=== PATIENT | male | born 1960 | race African-American/Black ===

== ENCOUNTER 2019-09-23 21:38 | Emergency (ER) | payer MEDICAID, OTHER ==
[~2019-09-23] VITALS: Ht 177.8 cm; Wt 73.0 kg
[2019-09-23] MEDS ORDERED: HYDROCODONE/ACETAMINOPHEN 5/325MG TABLET PO ONE (23:15)
[2019-09-24 01:15] VITALS: BP 134/74
== END 2019-09-24 01:16 | disposition home or self-care (01) ==
LOC: ER 21:38
DX: S43.101A Unspecified dislocation of right acromioclavicular joint, initial encounter (principal); X58.XXXA Exposure to other specified factors, initial encounter; Y93.89 Activity, other specified; Y92.410 Unspecified street and highway as the place of occurrence of the external cause; J30.9 Allergic rhinitis, unspecified; S43.121A Dislocation of right acromioclavicular joint, 100%-200% displacement, initial encounter
CPT/HCPCS: 29240; 73030; 99283; A4565

== ENCOUNTER 2019-09-26 12:35 | Emergency (ER) | payer MEDICAID ==
[~2019-09-26] VITALS: Ht 185.4 cm; Wt 72.0 kg
[2019-09-26] MEDS: IBUPROFEN 600MG TABLET PO ONE (13:31)
[2019-09-26 15:48] VITALS: BP 143/66
== END 2019-09-26 15:50 | disposition home or self-care (01) ==
LOC: ER 12:35
DX: M25.511 Pain in right shoulder (principal); M25.551 Pain in right hip
CPT/HCPCS: 73030; 73502; 73552; 99283

== ENCOUNTER 2020-06-24 13:28 | Emergency (ER) | payer MEDICAID ==
[~2020-06-24] VITALS: Ht 185.4 cm; Wt 64.9 kg
[2020-06-24 13:45] VITALS: BP 139/73
[2020-06-24 14:56] LABS: BASOPHILS % 0.7 % (0.0-2.0); EOSINOPHILS % 0.1 % (0.0-5.0); HEMATOCRIT. 41.2 % (42.0-52.0); HEMOGLOBIN. 14.4 g/dL (14.0-18.0); LYMPHOCYTES % 23.9 % (20.0-50.0); MEAN CORPUSCULAR VOLUME 97.3 fL (80.0-94.0); MEAN PLATELET VOLUME 7.1 fl (7.4-10.4); MONOCYTES % 7.8 % (2.0-8.0); NEUTROPHILS % 67.5 % (40.0-76.0); PLATELET 212 x1000/uL (130-400); RED BLOOD CELL COUNT 4.24 mill/uL (4.7-6.1); RED CELL DISTRIBUTION WIDTH 13.7 % (11.6-14.6)
[2020-06-24 15:05] LABS: CHLORIDE 101 mEq/L (98-107)
[2020-06-24 15:07] LABS: PROTHROMBIN TIME 10.6 sec (9.6-11.0)
== END 2020-06-24 18:49 | disposition home or self-care (01) ==
LOC: ER 13:28
DX: R20.2 Paresthesia of skin (principal); E87.6 Hypokalemia; R03.0 Elevated blood-pressure reading, without diagnosis of hypertension
CPT/HCPCS: 36415; 71045; 80053; 82962; 84484; 85025; 93005; 99285

== ENCOUNTER 2021-01-26 13:35 | Emergency (ER) | payer MEDICAID, OTHER ==
[~2021-01-26] VITALS: Ht 182.9 cm; Wt 73.0 kg
[2021-01-26] MEDS ORDERED: SODIUM CHLORIDE 0.9% 500 ML IV ONE (14:00)
[2021-01-26 14:26] LABS: BASOPHILS % 1.1 % (0.0-2.0); EOSINOPHILS % 0.3 % (0.0-5.0); HEMATOCRIT. 39.8 % (42.0-52.0); HEMOGLOBIN. 13.5 g/dL (14.0-18.0); MEAN CORPUSCULAR HEMOGLOBIN 34.4 pg (28.0-32.0); MEAN CORPUSCULAR VOLUME 100.9 fL (80.0-94.0); MEAN PLATELET VOLUME 7.7 fl (7.4-10.4); MONOCYTES % 9.6 % (2.0-8.0); PLATELET 175 x1000/uL (130-400); RED BLOOD CELL COUNT 3.94 mill/uL (4.7-6.1); RED CELL DISTRIBUTION WIDTH 14.5 % (11.6-14.6)
[2021-01-26 14:32] LABS: CHLORIDE 103 mEq/L (98-107)
[2021-01-26 14:36] LABS: ETHANOL BLOOD < 10 mg/dL; PROTHROMBIN TIME 10.6 sec (9.6-11.0)
[2021-01-26] MEDS ORDERED: SODIUM CHLORIDE 0.9% 1,000 ML IV ONE (15:00)
[2021-01-26] MEDS ORDERED: POTASSIUM CHLORIDE 20MEQ TABLET SR PO ONE (15:00)
[2021-01-26 15:12] LABS: CLARITY URINE CLEAR (CLEAR); COLOR URINE YELLOW (YELLOW); KETONES URINE NEGATIVE (NEGATIVE); LEUKOCYTE ESTERASE URINE NEGATIVE (NEGATIVE); NITRITE URINE NEGATIVE (NEGATIVE); OCCULT BLOOD URINE NEGATIVE (NEGATIVE); PH URINE 6.5 (4.5-8.0); PROTEIN URINE NEGATIVE (NEGATIVE); SPECIFIC GRAVITY URINE 1.008 (1.005-1.030)
[2021-01-26 15:47] LABS: *AMPHETAMINES SCREEN URINE NEGATIVE (NEGATIVE); *BARBITURATES SCREEN URINE NEGATIVE (NEGATIVE); *BENZODIAZEPINES SCREEN URINE NEGATIVE (NEGATIVE)
[2021-01-26 15:49] LABS: *COCAINE SCREEN URINE NEGATIVE (NEGATIVE); CANNABINOID URINE SCREEN NEGATIVE (NEGATIVE); METHADONE URINE SCREEN NEGATIVE (NEGATIVE); OPIATES URINE SCREEN NEGATIVE (NEGATIVE); PHENCYCLIDINE URINE SCREEN NEGATIVE (NEGATIVE)
[2021-01-26] MEDS ORDERED: POTA20TA82 MT (17:33)
[2021-01-26 18:07] VITALS: BP 139/87
== END 2021-01-26 18:08 | disposition home or self-care (01) ==
LOC: ER 13:35
DX: K64.4 Residual hemorrhoidal skin tags (principal); E87.2 Acidosis; E87.6 Hypokalemia; R03.0 Elevated blood-pressure reading, without diagnosis of hypertension; Z98.890 Other specified postprocedural states
CPT/HCPCS: 36415; 80053; 80305; 80320; 81003; 83605; 83690; 85025; 85610; 86850; 86900; 86901; 93005; 96360; 99284; J7040; Z7610; G0480

== ENCOUNTER 2022-04-17 17:10 | Emergency (ER) | payer MEDICAID, OTHER ==
[~2022-04-17] VITALS: Ht 188 cm; Wt 73.0 kg
[~2022-04-17 17:10] MED LIST: POTA-204 MT
[2022-04-17] MEDS ORDERED: KETOROLAC 60MG/2ML VIAL IM ONE (17:30)
[2022-04-17] MEDS ORDERED: IBUP-2029 MT (17:57)
[2022-04-17 18:01] VITALS: BP 120/70
== END 2022-04-17 19:37 | disposition home or self-care (01) ==
LOC: ER 17:10
DX: M25.551 Pain in right hip (principal)
CPT/HCPCS: 73502; 96372; 99283; J1885

== ENCOUNTER 2022-05-21 18:50 | Emergency (ER) | payer MEDICAID, OTHER ==
[~2022-05-21] VITALS: Ht 177.8 cm; Wt 91.0 kg
[~2022-05-21 18:50] MED LIST changes: +IBUP-2029 MT
[2022-05-21] MEDS ORDERED: IBUPROFEN 600MG TABLET PO ONE (19:30)
[2022-05-21] MEDS: IBUPROFEN 600MG TABLET PO NR ×2 (19:30→22:15)
[2022-05-21] MEDS ORDERED: CLOTRIMAZOLE 1% CREAM 15GM TOP ONE (21:15)
[2022-05-21] MEDS ORDERED: ACET-2708 MT (21:49)
[2022-05-21] MEDS ORDERED: CLOT21CR VG (21:49)
[2022-05-21 21:57] VITALS: BP 112/78
== END 2022-05-21 21:57 | disposition home or self-care (01) ==
LOC: ER 18:50
DX: B35.6 Tinea cruris (principal); M79.642 Pain in left hand; M79.89 Other specified soft tissue disorders; F17.290 Nicotine dependence, other tobacco product, uncomplicated; F12.10 Cannabis abuse, uncomplicated
CPT/HCPCS: 73130; 93970; 99284

== ENCOUNTER 2024-01-28 15:54 | Emergency (ER) | payer OTHER, MEDICARE ==
[~2024-01-28] VITALS: Ht 185.4 cm; Wt 60.0 kg
[~2024-01-28 15:54] MED LIST changes: +ACET-2708 MT; +CLOT21CR VG
[2024-01-28 16:02] VITALS: O2SAT 99
[2024-01-28] MEDS: ACETAMINOPHEN 325MG TABLET PO STA (18:31)
[2024-01-28 18:35] LABS: BASOPHILS % 1.3 % (0.0-2.0); EOSINOPHILS % 0.6 % (0.0-5.0); HEMATOCRIT. 39.4 % (42.0-52.0); HEMOGLOBIN. 13.7 g/dL (14.0-18.0); MEAN CORPUSCULAR HEMOGLOBIN 33.6 pg (28.0-32.0); MEAN CORPUSCULAR HGB CONC 34.6 g/dL (31.0-37.0); MEAN CORPUSCULAR VOLUME 97.1 fL (80.0-94.0); MEAN PLATELET VOLUME 7.3 fl (7.4-10.4); MONOCYTES % 6.6 % (2.0-8.0); NEUTROPHILS % 66.5 % (40.0-76.0); PLATELET 254 x1000/uL (130-400); RED BLOOD CELL COUNT 4.06 mill/uL (4.7-6.1); RED CELL DISTRIBUTION WIDTH 13.2 % (11.6-14.6); WHITE BLOOD COUNT 5.2 x1000/uL (4.5-11.0)
[2024-01-28 18:45] LABS: ALANINE AMINOTRANSFERASE 11 IU/L (10-49); ALBUMIN 4.3 g/dL (3.2-4.8); ASPARTATE AMINOTRANSFERASE 18 IU/L (<34); BILIRUBIN TOTAL 0.7 mg/dL (0.1-1.0); CALCIUM 9.1 mg/dL (8.7-10.4); CARBON DIOXIDE 28 mEq/L (21-32); CHLORIDE 105 mEq/L (98-107); CREATININE 0.7 mg/dL (0.6-1.3); GLUCOSE 81 mg/dL (70-105); POTASSIUM 3.7 mEq/L (3.5-5.1); PROTEIN TOTAL 7.6 g/dL (6.0-8.3); SODIUM 139 mEq/L (136-145); UREA NITROGEN BLOOD 10 mg/dL (9-23)
[2024-01-28] MEDS ORDERED: [UNRECOGNIZED DRUG - CODE] MC (20:16)
[2024-01-28 20:35] VITALS: BP 119/74; PULSE 84; RESP 18; TEMP 98.1
== END 2024-01-28 20:55 | disposition home or self-care (01) ==
LOC: ER 15:54
DX: G89.29 Other chronic pain (principal); R60.0 Localized edema; F12.10 Cannabis abuse, uncomplicated
CPT/HCPCS: 36415; 80053; 83880; 85025; 93970; 99284